=== PATIENT | female | born 2000 | race Caucasian/White ===

== ENCOUNTER 2025-06-25 09:52 | Emergency (ER) | payer BC, SELFPAY ==
[2025-06-25] VITALS (11 sets, daily range): BP systolic 74–132; BP diastolic 51–73; BMI 21.6
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
[2025-06-25] MEDS: HALDOL 2.5 MG IV (10:10)
[2025-06-25] MEDS: VERSED 2 MG IV (10:10)
[2025-06-25] MEDS: NSS 1000 IV ×3 (10:11→15:28)
[2025-06-25 10:16] LABS: Hematocrit 41.1 % (37.0-47.0); Hemoglobin 13.6 g/dL (12.0-16.0); Mean Corp Hgb Conc. 33.1 g/dL (33.0-37.0); Mean Corpuscular Volume 88.4 fL (81.0-99.0); Nucleated Red Blood Cells % 0 %; Platelet Count 367 10^3/uL (130-400); Red Cell Dist. Width 13.2 % (11.5-14.5)
[2025-06-25 10:33] LABS: HCG, Serum Qualitative Screen Positive
[2025-06-25 10:36] LABS: Blood Urea Nitrogen 4 mg/dl (7-17); Calcium 9.5 mg/dl (8.4-10.2); Carbon Dioxide 20 mmol/L (22-30); Chloride 114 mmol/L (98-107); Estimated Creatinine Clearance > 125 ml/min; Glucose 93 mg/dl (70-99); Sodium 148 mmol/L (135-145); eGFR > 60.00
[2025-06-25 10:37] LABS: Acetaminophen < 10 ug/ml (10-30); Salicylate < 0.1 mg/dl (2.0-20.0)
[2025-06-25] MEDS: THIAMINE INJECTION 100 MG IV (11:03)
[2025-06-25] MEDS: FOLVITE 50.2 MG IV (11:04)
[2025-06-25] MEDS: MAGNESIUM SULFATE 50 IV (11:28)
[2025-06-25 13:23] LABS: Beta HCG Quantitative 172020.00 mIU/ml
== END 2025-06-25 18:18 | disposition home or self-care (01) ==
LOC: EMR 09:52
PROVIDERS: EMERGENCY PHYSICIAN Emergency Medicine
DX: O99.891 Other specified diseases and conditions complicating pregnancy (principal); F10.129 Alcohol abuse with intoxication, unspecified; O99.320 Drug use complicating pregnancy, unspecified trimester; F19.10 Other psychoactive substance abuse, uncomplicated; Y90.8 Blood alcohol level of 240 mg/100 ml or more; Z78.1 Physical restraint status
CPT/HCPCS: 99283; 96365; 96375; 96361; 80048; 80143; 80179; 82077; 84702; 84703; 85025; 93005

== ENCOUNTER → 2025-08-02 16:00 | Outpatient (REF) | payer BC, SELFPAY | LOC: PNTC 16:00 | PROVIDERS: ATTENDING PHYSICIAN Obstetrics & Gynecology | DX: Z34.92 Encounter for supervision of normal pregnancy, unspecified, second trimester (principal); Z36.87 Encounter for antenatal screening for uncertain dates | CPT/HCPCS: 76805 ==

== ENCOUNTER → 2025-10-24 11:07 | Outpatient (REF) | payer BC, SELFPAY | LOC: PNTC 11:07 | PROVIDERS: ATTENDING PHYSICIAN Obstetrics & Gynecology | DX: O28.5 Abnormal chromosomal and genetic finding on antenatal screening of mother (principal) | CPT/HCPCS: 76816 ==